=== PATIENT | female | born 1955 | race Caucasian/White ===

== ENCOUNTER 2025-07-08 06:15 | Emergency (ER) | payer OTHER ==
[~2025-07-08] VITALS: Ht 170.2 cm; Wt 55.8 kg
[2025-07-08 06:53] LABS: PLATELET COUNT (AUTO) 202 K/uL (150-450); RED BLOOD CELL COUNT(AUTO) 4.67 MIL/uL (4.0-5.2); RED CELL DISTRIBUTION WIDTH 12.9 % (11.5-15.0); WHITE BLOOD COUNT (AUTO) 9.4 K/uL (4.3-11.0)
[2025-07-08 07:00] LABS: CALCIUM, SERUM 8.5 mg/dL (8.5-10.1); CREATININE 0.9 mg/dL (0.6-1.3); SODIUM SERUM 133 mmol/L (136-145); UREA NITROGEN, BLOOD 12 mg/dL (7-18)
[2025-07-08 07:12] LABS: ALCOHOL, BLOOD < 3 mg/dL (0-10)
[2025-07-08] MEDS: IV NS 0.9% 1,000 ML BAG IV ONE ×2 (07:54→10:48)
[2025-07-08] MEDS ORDERED: IV NS 0.9% 250 ML IV ONE (08:00)
[2025-07-08] MEDS ORDERED: IOHEXOL-350 100 ML VIAL IV ONE (08:00)
[2025-07-08] MEDS ORDERED: CT SWABBABLE VALVE TRANS SET 1 EA INFUS.SET MC ONE (08:00)
[2025-07-08] MEDS ORDERED: GABA300C PO (08:43)
[2025-07-08] MEDS ORDERED: DENO60DI SQ (08:43)
[2025-07-08] MEDS ORDERED: ZOLP12.52 PO (08:43)
[2025-07-08] MEDS ORDERED: EVOL140P3 SQ (08:43)
[2025-07-08] MEDS ORDERED: FLUO20CA36 PO (08:43)
[2025-07-08] MEDS ORDERED: ALPR1TAB7 PO (08:43)
[2025-07-08 09:42] LABS: APPEARANCE,URINE CLEAR (CLEAR); BLOOD, URINE 1+ Ery/uL (NEGATIVE); LEUKOCYTE ESTERASE ,URINE NEGATIVE (NEGATIVE); NITRITE, URINE NEGATIVE (NEGATIVE); UGLUCOSE NEGATIVE (NEGATIVE)
[2025-07-08 09:46] LABS: AMPHETAMINE, URINE NEGATIVE (NEGATIVE); BARBITURATE, URINE NEGATIVE (NEGATIVE); CANNABINOID, URINE NEGATIVE (NEGATIVE); COCCAINE, URINE NEGATIVE (NEGATIVE); OPIATE, URINE NEGATIVE (NEGATIVE)
[2025-07-08 10:14] LABS: BENZODIAZEPINE, URINE POSITIVE (NEGATIVE)
[2025-07-08 10:15] LABS: ADD URINE CULTURE NO
[2025-07-08] MEDS ORDERED: OSELTAMIVIR PHOSPHATE 75 MG CAPSULE ONE (10:16)
[2025-07-08] MEDS ORDERED: ACETAMINOPHEN ES 500 MG TABLET ONE (10:16)
[2025-07-08] MEDS: OSELTAMIVIR PHOSPHATE 75 MG CAPSULE PO ONE (10:19)
[2025-07-08] MEDS: ACETAMINOPHEN ES 500 MG TABLET PO ONE (10:19)
[2025-07-08 11:00] VITALS: BP 104/62; TEMP 98.5; O2SAT 96
== END 2025-07-08 11:55 | disposition short-term general hospital (02) ==
LOC: ER 06:22
DX: R41.82 Altered mental status, unspecified (principal); R53.1 Weakness; J10.1 Influenza due to other identified influenza virus with other respiratory manifestations; I63.9 Cerebral infarction, unspecified; Z79.899 Other long term (current) drug therapy; Z20.822 Contact with and (suspected) exposure to COVID-19
CPT/HCPCS: 99291; 96360; 96361; 93005; 71045; 70450; 70498; 70496; 85025; 80048; 87804; 83735; 85730; 81001; 36415; 84439; 84443; 84484; 82962; 87426; 80143; 80320; 80307; J7030 ×2; J7050; Q9967; G0480